=== PATIENT | female | born 1935 | race Caucasian/White ===

== ENCOUNTER → 2017-01-05 | Outpatient (CLI) | payer OTHER ==
--- NOTE | 2017-01-05 12:16 | US ---
HISTORY: Abnormal liver function test Study: Right upper quadrant ultrasound Comparison: None Technique: Multiple grayscale sonographic images were obtained. Findings: The liver was normal in size and configuration and without evidence for cyst, mass, or biliary ductal dilatation. No gallstones are identified within the gallbladder. Gallbladder wall thickness was norm al. The common duct measured 4.2 millimeters. The right kidney measured 10.6 x 5.3 x 3.9 centimeters and demonstrated no solid masses, hydronephrosis, stones, or perinephric fluid collections were ident ified. The head and body of the pancreas were normal. The tail was obscured by overlying bowel gas. IMPRESSION: No significant abnormality identified Reported By:
[2017-01-06 19:14] LABS: HEPATITIS A ANTIBODY IGM Negative (Negative)
[2017-01-08 06:31] LABS: HEPATITIS B CORE IGM Negative (Negative); HEPATITIS B SURFACE ANTIGEN Negative (Negative)
== END ==
LOC: RAD 10:19
PROVIDERS: ATTEND Obstetrics & Gynecology Obstetrics
DX: R94.5 Abnormal results of liver function studies (principal)
CPT/HCPCS: 76705; 80074